=== PATIENT | female | born 1960 | race Caucasian/White ===

== ENCOUNTER → 2016-07-07 | Outpatient (CLI) | payer OTHER ==
--- NOTE | 2016-07-07 10:10 | US ---
Ultrasound of the Abdomen Complete History: Abdominal fullness. R14 Findings: Gallbladder: No shadowing calculi, wall thickening, or pericholecystic fluid. Common bile duct is 5 m m in diameter which is normal. Liver: Homogeneous in echogenicity and measures 14 cm in length. No definite focal lesions. Renal: Right kidney measures 11 x 5 x 5 cm and left kidney 11 x 5 x 5 cm without hydronephrosis in ei ther kidney. Spleen: Homogeneous and 10 cm in length without splenomegaly. Pancreas: Homogeneous without peripancreatic fluid. Aorta: Visualized upper abdominal aorta demonstrates no aneurysm. IVC: Grossly patent. Impression: Normal ultrasound abdomen complete.
== END ==
LOC: BRMIMAGING 09:15
PROVIDERS: ATTEND Physician Assistant
DX: R14.0 Abdominal distension (gaseous) (principal)
CPT/HCPCS: 76700-PO

== ENCOUNTER → 2017-06-01 | Outpatient (CLI) | payer OTHER | LOC: FIMAGING 12:16 | PROVIDERS: ATTEND Physician Assistant | DX: Z12.31 Encounter for screening mammogram for malignant neoplasm of breast (principal) | CPT/HCPCS: G0202 ==

== ENCOUNTER → 2017-12-13 | Outpatient (CLI) | payer OTHER | LOC: CIMAGING 15:23 | PROVIDERS: ATTEND Physician Assistant | DX: Z03.89 Encounter for observation for other suspected diseases and conditions ruled out (principal); R89.9 Unspecified abnormal finding in specimens from other organs, systems and tissues | CPT/HCPCS: 76536-PO ==

== ENCOUNTER → 2018-06-03 | Outpatient (CLI) | payer OTHER | LOC: CIMAGING 15:00 | PROVIDERS: ATTEND Physician Assistant | DX: Z12.31 Encounter for screening mammogram for malignant neoplasm of breast (principal) ==

== ENCOUNTER → 2018-06-12 | Outpatient (CLI) | payer OTHER | LOC: CIMAGING 12:58 | PROVIDERS: ATTEND Physician Assistant | DX: R92.8 Other abnormal and inconclusive findings on diagnostic imaging of breast (principal) | CPT/HCPCS: 76641-PO ==

== ENCOUNTER → 2018-07-22 | Outpatient (CLI) | payer OTHER | LOC: CIMAGING 16:56 | PROVIDERS: ATTEND Physician Assistant | DX: D25.1 Intramural leiomyoma of uterus (principal); N39.9 Disorder of urinary system, unspecified; Z78.0 Asymptomatic menopausal state | CPT/HCPCS: 76856-PO ==

== ENCOUNTER → 2018-08-15 | Outpatient (CLI) | payer OTHER | LOC: CIMAGING 17:01 | PROVIDERS: ATTEND Obstetrics & Gynecology Gynecology | DX: D25.1 Intramural leiomyoma of uterus (principal) | CPT/HCPCS: 76856-PO ==

== ENCOUNTER 2018-10-07 14:20 | Emergency (ER) | payer OTHER ==
[2018-10-07] MEDS ORDERED: NS 1,000 ML IV ONE ×2 (14:34→17:12)
--- NOTE | 2018-10-07 14:45 | EDPHY ---
H & P Stated Complaint: bladder infection siice sunday , body aches, fever Source: Patient Exam Limitations: No limitations - Personal History Current Tetanus Diphtheria and Acellular Pertussis (TDAP): Yes - Medical/Surgical History Hx Asthma: No Hx Chronic Respiratory Disease: No Hx Diabetes: No Hx Cardiac Disease: No Hx Renal Disease: No Hx Cirrhosis: No Hx Alcoholism: No Hx HIV/AIDS: No Hx Splenectomy or Spleen Trauma: No Other PMH: HTN, left knee surgery - Social History Smoking Status: Never smoked <KeonKyliemari - Last Filed: 10/07/18 17:45> <SharronmarioSarai Mari - Last Filed: 10/08/18 17:26> Time Seen by Provider: 10/07/18 14:34 HPI/ROS: HPI: This is a 50-year-old female who presents with Chief Complaint: bladder infection since Sunday , body aches, fever Location: Quality: Burning with urination Duration: Since Sunday Signs and Symptoms: + subjective fever, + chills, + nausea, no vomiting, no hematemesis, no blood in stool, no abdominal bloating, no diarrhea, + lower back pain, no urinary symptoms, no vaginal bleeding/discharge, no indigestion, no chest pain, no shortness of breath Timing: Worsening Severity: Moderate Context: Patient presents with concerns of a bladder infection that was diagnosed on Sunday afternoon. On Sunday she received preoperative lab work and urinalysis for her planned total hysterectomy for fibroid uterus this Sunday. She was called on Sunday and informed that she had a urinary tract infection and was started on Macrobid. Sunday she started to developed subjective fever, chills, nausea and low back pain. She complains of burning with urination. She reports that a urine culture was never sent. She has an allergy to ciprofloxacin and cephalexin. Patient complains of lower abdominal fullness and discomfort. Modifying Factors: Macrobid Comment: ROS: A comprehensive 10 system review of systems is otherwise negative aside from elements mentioned in the history of present illness. MEDICAL/SURGICAL/SOCIAL HISTORY: Medical history: Hypertension Surgical history: Left knee surgery Social history: Never smoked. . 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 Family history noncontributory. CONSTITUTIONAL: Nontoxic-appearing middle-aged white female, friend at bedside , awake and alert, no obvious distress HEENT: Atraumatic and normocephalic, PERRL, EOMI. Nares patent; no rhinorrhea; no nasal mucosal edema. Tympanic membranes clear. Oropharynx clear, no exudate and moist pink mucosa. Airway patent. No lymphadenopathy. No meningismus. Cardiovascular: Normal S1/S2, regular rate, regular rhythm, without murmur rub or gallop. PULMONARY/CHEST: Symmetrical and nontender. Clear to auscultation bilaterally. Good air movement. No accessory muscle usage. ABDOMEN: Soft, nondistended, moderate suprapubic tenderness, no rebound, no guarding, no peritoneal signs, no masses or organomegaly. No CVAT. EXTREMITIES: 2/2 pulses, strength 5/5, no deformities, no clubbing, no cyanosis or edema. NEUROLOGICAL: no focal neuro deficits. GCS 15. SKIN: Warm and dry, no erythema. no rash. Good capillary refill. (Ronda Herbert) Constitutional: Initial Vital Signs Temperature (C) 37.5 C 10/07/18 14:23 Heart Rate 112 H 10/07/18 14:23 Respiratory Rate 16 10/07/18 14:23 Blood Pressure 133/80 H 10/07/18 14:23 O2 Sat (%) 97 10/07/18 14:23 O2 Delivery Mode Room Air Allergies/Adverse Reactions: cephalexin monohydrate [From Keflex] Allergy (Verified 10/08/18 10:16) ciprofloxacin [From Cipro] Allergy (Verified 10/08/18 10:16) ciprofloxacin HCl [From Cipro] Allergy (Verified 10/08/18 10:16) Home Medications: Medication Instructions Recorded Hydrochlorothiazide 12.5 mg PO DAILY 10/15/12 [Hydrochlorothiazide 12.5 MG (RX)] Lisinopril Unk 04/21/13 Ondansetron Odt [Zofran Odt 4 mg 4 mg PO Q4 PRN #20 tab 10/08/18 (RX)] Medical Decision Making <Ronda Herbert - Last Filed: 10/07/18 17:45> - Diagnostics Imaging: Discussed imaging studies w/ scalloper Radiologist <Sarai Malhotra - Last Filed: 10/08/18 17:26> ED Course/Re-evaluation: Vital signs reviewed and show mild tachycardia. IV access, laboratory studies, urinalysis ordered Given 2 L normal saline, IV Toradol 30 mg and IV Zofran 4 mg 1516: Laboratory studies reviewed. WBC 11 K, creatinine 0.8. No signs electrolyte imbalance Urinalysis is completely unremarkable. Decision made to obtain CT abdomen and pelvis scan. 1745: End of shift. Signed over to Dr. Malhotra pending CT abdomen and pelvis scan results and final disposition. This patient was seen under the supervision of my secondary supervising physician. I evaluated care for this patient independently. (Ronda Herbert) I have evaluated and participated in the management of this patient. My co- signature indicates that I have reviewed this chart and that I agree with the findings and the plan of care as documented. My personal history and physical findings include: 58-year-old female scheduled to undergo surgery for uterine fibroid at the end of this week. She is presenting with abdominal pain. I received a report of the CT of her abdomen and pelvis and relayed t the findings to the patient. There was nothing in the CT scan that required immediate attention and no clear explanation for her pain. There is a lesion in the right hepatic lobe that was previously seen--she was aware of this. She continues with a sensation of abdominal fullness. She is aware that her urinalysis is negative for any signs of infection. There is nothing to suggest pyelonephritis. I do not have a clear explanation for her elevated white blood cell count but I have not found anything of concern in her history, physical exam, or laboratory findings and I do not recommend additional emergency department evaluation. Her surgeon will be made aware of today's visit. A urine culture has been sent. (Sarai Malhotra) Differential Diagnosis: Differential diagnosis includes but is not limited to urinary tract infection, pyelonephritis, sepsis, dehydration, acute kidney injury. (Ronda Herbert) - Data Points Laboratory Results: Laboratory Results 10/07/18 14:48 10/07/18 14:48 Medications Given: Discontinued Medications Sodium Chloride (Ns) 1,000 mls @ 0 mls/hr IV ONCE ONE; Wide Open PRN Reason: Protocol Stop: 10/07/18 14:35 Last Admin: 10/07/18 14:52 Dose: 1,000 mls Sodium Chloride (Ns) 1,000 mls @ 0 mls/hr IV EDNOW ONE; Wide Open PRN Reason: Protocol Stop: 10/07/18 17:13 Last Admin: 10/07/18 17:14 Dose: 1,000 mls Ketorolac Tromethamine (Toradol) 30 mg IVP EDNOW ONE Stop: 10/07/18 15:04 Last Admin: 10/07/18 15:09 Dose: 30 mg Ondansetron HCl (Zofran) 4 mg IVP EDNOW ONE Stop: 10/07/18 14:57 Last Admin: 10/07/18 14:58 Dose: 4 mg Departure <Ronda Herbert - Last Filed: 10/07/18 17:45> <Sarai Malhotra - Last Filed: 10/08/18 17:26> - Departure Disposition: Home, Routine, Self-Care Clinical Impression: Fibroid uterus, Abdominal pain Condition: Good Instructions: Abdominal Pain (ED) Additional Instructions: Follow up with Dr. Stinson as planned. Referrals: Rae Hebert PA [Primary Care Provider] - As per Instructions Lorelei Stinson MD [Medical Doctor] - As per Instructions
[2018-10-07] MEDS ORDERED: ONDANSETRON 4 MG/2 ML VIAL IVP ONE (14:56)
[2018-10-07 14:57] LABS: PLATELET COUNT 317 10^3/uL (150-400)
[2018-10-07] MEDS ORDERED: KETOROLAC 30 MG/1 ML SDV IVP ONE (15:03)
[2018-10-07] MEDS ORDERED: IOPAMIDOL (ISOVUE-300) 100 ML BTL ONE (17:44)
[2018-10-07 18:56] VITALS: BP 112/68
== END 2018-10-07 18:56 | disposition home or self-care (01) ==
DX: D25.9 Leiomyoma of uterus, unspecified (principal); R30.0 Dysuria; R10.9 Unspecified abdominal pain; R50.9 Fever, unspecified; M79.10 Myalgia, unspecified site; E86.9 Volume depletion, unspecified
CPT/HCPCS: 96374; J1885; J2405; Q9967

== ENCOUNTER 2018-10-08 09:53 | Emergency (ER) | payer OTHER ==
[2018-10-08] MEDS ORDERED: ACETAMINOPHEN 500 MG TAB PO ONE (10:24)
--- NOTE | 2018-10-08 10:28 | EDPHY ---
H & P Time Seen by Provider: 10/08/18 10:15 HPI/ROS: CHIEF COMPLAINT: Body aches, fevers, sore throat HISTORY OF PRESENT ILLNESS: Patient is a 58-year-old female who is scheduled to have a hysterectomy on . On Sunday of last week they were doing preoperative lab work and discovered that she had white cells in her urine. They called her on Sunday and started on Macrobid. She denies having any urinary symptoms however. She states that she does get frequent urine infections but has not had the dysuria or frequency that she usually does. No hematuria either. Urine cultures were not sent. On Sunday she presented to the ER complaining of body aches and chills. She had lab work done which is unremarkable other than slightly elevated white count. She had a CT scan done of her abdomen which was unremarkable other than the previously known fibroid. Her urinalysis at that time was completely negative. Cultures were sent. Today she returns to the ER stating that she is having body aches and now having a sore throat and headache and nausea. She continues to deny any dysuria frequency or hematuria. No rashes. She feels better after taking Tylenol yesterday but has not taken any today. She did take Zofran with significant improvement. She did get a flu vaccine this year. No runny nose. No diarrhea. No vaginal bleeding or discharge. Severity: Moderate Modifying factors: Improves with medications REVIEW OF SYSTEMS: Constitutional: denies: chills, fever, recent illness, recent injury EENTM see HPI: denies: blurred vision, double vision, nose congestion Respiratory: denies: cough, shortness of breath Cardiac: denies: chest pain, irregular heart rate, lightheadedness, palpitations Gastrointestinal/Abdominal: denies: abdominal pain, diarrhea, nausea, vomiting, blood streaked stools Genitourinary: denies: dysuria, frequency, hematuria, pain Musculoskeletal: denies: joint pain, muscle pain Skin: denies: lesions, rash, jaundice, bruising Neurological: denies: headache, numbness, paresthesia, tingling, dizziness, weakness Hematologic/Lymphatic: denies: blood clots, easy bleeding, easy bruising Immunologic/allergic: denies: HIV/AIDS, transplant 10 systems reviewed and negative except as noted EXAM: GENERAL: Well-appearing, well-nourished and in no acute distress. HEAD: Atraumatic, normocephalic. EYES: Pupils equal round and reactive to light, extraocular movements intact, sclera anicteric, conjunctiva are normal. ENT: TMs normal, nares patent, oropharynx clear without exudates. Moist mucous membranes. NECK: Normal range of motion, supple without lymphadenopathy or JVD. LUNGS: Breath sounds clear to auscultation bilaterally and equal. No wheezes rales or rhonchi. HEART: Regular rate and rhythm without murmurs, rubs or gallops. ABDOMEN: Soft, nontender, normoactive bowel sounds. No guarding, no rebound. No masses appreciated. BACK: No CVA tenderness, no spinal tenderness, step-offs or deformities EXTREMITIES: Normal range of motion, no pitting or edema. No clubbing or cyanosis. NEUROLOGICAL: Cranial nerves II through XII grossly intact. Normal speech, normal gait. 5/5 strength, normal movement in all extremities, normal sensation , normal reflexes PSYCH: Normal mood, normal affect. SKIN: Warm, dry, normal turgor, no visible rashes or lesions. Source: Patient Exam Limitations: No limitations - Medical/Surgical History Hx Asthma: No Hx Chronic Respiratory Disease: No Hx Diabetes: No Hx Cardiac Disease: No Hx Renal Disease: No Hx Cirrhosis: No Hx Alcoholism: No Hx HIV/AIDS: No Hx Splenectomy or Spleen Trauma: No Other PMH: HTN, left knee surgery - Family History Significant Family History: No pertinent family hx - Social History Smoking Status: Never smoked Alcohol Use: None Constitutional: Initial Vital Signs Temperature (C) 38.2 C 10/08/18 10:17 Heart Rate 112 H 10/08/18 10:17 Respiratory Rate 14 10/08/18 10:17 Blood Pressure 113/73 10/08/18 10:17 O2 Sat (%) 94 10/08/18 10:17 O2 Delivery Mode Room Air Allergies/Adverse Reactions: cephalexin monohydrate [From Keflex] Allergy (Verified 10/08/18 10:16) ciprofloxacin [From Cipro] Allergy (Verified 10/08/18 10:16) ciprofloxacin HCl [From Cipro] Allergy (Verified 10/08/18 10:16) Home Medications: Medication Instructions Recorded Hydrochlorothiazide 12.5 mg PO DAILY 10/15/12 [Hydrochlorothiazide 12.5 MG (RX)] Lisinopril Unk 04/21/13 Ondansetron Odt [Zofran Odt 4 mg 4 mg PO Q4 PRN #20 tab 10/08/18 (RX)] Medical Decision Making ED Course/Re-evaluation: The patient has been taking antibiotics for white cells in her urine but she has not had any urinary symptoms which she is typically used to with her frequent infections. She has no developing other symptoms of a generalized viral type illness such as a sore throat, headache, body aches and fevers. She is not toxic-appearing. Will treat her with antipyretics and hydration. She declines IV and is able to take oral fluids. She did take a Zofran at home today and declines further nausea medication. Her abdominal exam is benign. She had a CT done yesterday which was reassuring. Will check for flu and strep and send off a respiratory PCR. Most likely this is a flu-like viral illness that will resolve with conservative treatment. 11:00 a.m. the patient has developed a mild diffuse lacy rash considered with a viral exanthem. She continues to do well and is waiting for her lab results. 12:00 p.m. we discussed the test results. The patient is reassured. Her fever has resolved. Heart rate is normalized. She is eager to go home. I encouraged her to continue taking antipyretics. Respiratory PCR is pending. Her surgery for has been canceled. I suggested that she is at the beginning of a viral type infection and will likely worsen over the next couple of days. We discussed indications for returning the emergency department such as shortness of breath, chest pain, uncontrolled vomiting fevers etc. She feels comfortable with this plan and declines further workup or testing at this time. We did discussed the case with Dr. Stinson's office. She will continue taking the Macrobid. Differential Diagnosis: Partial list of the Differential diagnosis considered include but were not limited to; viral syndrome, strep throat, influenza, urinary tract infection and although unlikely based on the history and physical exam, I also considered pyelonephritis, appendicitis, ischemia, obstruction, volvulus, meningitis, sepsis. I discussed these differential diagnoses and the plan with the patient as well as the usual and expected course. The patient understands that the diagnosis is provisional and that in medicine we are not always correct and that further workup is often warranted. Usual and customary warnings were given. All of the patient's questions were answered. The patient was instructed to return to the emergency department should the symptoms at all worsen or return, otherwise to followup with the physician as we discussed. - Data Points Medications Given: Discontinued Medications Acetaminophen (Tylenol) 1,000 mg PO EDNOW ONE Stop: 10/08/18 10:25 Last Admin: 10/08/18 10:49 Dose: 1,000 mg Point of Care Test Results: Influenza PCR Flu Nasal Swab Collection Date 10/08/18 Flu Nasal Swab Collection Time 10:40 Influenza A Result Not Detected Influenza B Result Not Detected Strep Strep Throat Swab Collection 10/08/18 Date Strep Throat Swab Swab 10:40 Collection Time Strep Result Not Detected Departure - Departure Disposition: Home, Routine, Self-Care Clinical Impression: Viral syndrome Condition: Fair Instructions: Viral Syndrome (ED) Referrals: Lorelei Stinson MD [Medical Doctor] - As per Instructions Rae Hebert PA [Primary Care Provider] - 2-3 days, call for appt. Prescriptions: Ondansetron Odt [Zofran Odt 4 mg (RX)] 4 mg PO Q4 PRN #20 tab PRN Reason: Nausea & Vomiting
[2018-10-08 12:12] VITALS: BP 112/74
== END 2018-10-08 12:11 | disposition home or self-care (01) ==
LOC: CED 09:53
DX: B34.8 Other viral infections of unspecified site (principal); I10 Essential (primary) hypertension; D25.9 Leiomyoma of uterus, unspecified
CPT/HCPCS: 670937QWER; 87400-QW-ER; 99283-ER

== ENCOUNTER 2018-10-10 10:06 | Observation (INO) | payer OTHER ==
[2018-10-10] MEDS ORDERED: NS 1,000 ML IV ONE (10:28)
[2018-10-10 10:37] LABS: PLATELET COUNT 262 10^3/uL (150-400)
--- NOTE | 2018-10-10 10:43 | EDPHY ---
HPI/HX/ROS/PE/MDM Narrative: CHIEF COMPLAINT: Rash, abdominal pain, body aches HPI: The patient is a 58-year-old female with known uterine fibroids. She has been seen in the emergency department several times over the last week for a variety of complaints including body aches, sore throat and abdominal pain. Workup has so far included a CT scan of the abdomen pelvis which is negative and a respiratory PCR which recently came back as positive for human enterovirus. The patient returns to the emergency department by ambulance today saying that she hurts all over and feels like she just can't take it anymore. The patient is quite tearful during exam and has to stop speaking several times secondary to crying. REVIEW OF SYSTEMS: Aside from elements discussed in the HPI, a comprehensive 10-point review of systems was reviewed and is negative. PMH: Includes uterine fibroids. 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 Denies drug abuse. PHYSICAL EXAM: General:Patient is alert, in no acute distress. She is well appearing but quite tearful. ENT:Eyes are normal to inspection. ENT inspection normal. Neck: Normal inspection. Full range of motion. Respiratory:No respiratory distress. Breath sounds normal bilaterally. Cardiovascular: Regular rate and rhythm. Strong peripheral pulses. Normal cap refill. Abdomen:The abdomen is nontender to palpation. There are no peritoneal signs. There are normal bowel sounds. Back: Normal to inspection. No tenderness to palpation. Skin: Erythematous macular papular rash is present on essentially entire body except for face and toes. On the legs, this is a red macular papular rash that is confluent. On the chest and torso, this is almost entirely confluent erythematous. There are no vesicles. Extremities: Normal appearance. Full range of motion. Neuro: Oriented x3. Normal motor function. Normal sensory function. ED Course: On re-evaluation at 11:30 a.m., patient continues to complain of overall malaise. Her rash is unchanged. Her laboratory results are unchanged from the past several days and her chest x-ray is negative. The patient recently underwent a CTAP that was negative for acute process, and her abdominal pain has been present for two months - I see no sign of abdominal emergency at this time. The patient states that she still feels too weak to go home and requests admission to the hospital. I paged the hospitalist service and patient will be admitted for observation. I think the patient's rash is likely a drug rash. Anaphylaxis much less likely given no discrete urticaria or airway issues. I will defer possible steroid therapy to admitting physician. - Data Points Imaging Results: Imaging Impressions Chest X-Ray 10/10/18 10:29 Impression: No acute findings in the chest. Laboratory Results: Laboratory Results 10/10/18 10:45 10/10/18 10:45 10/10/18 10/10/18 10/10/18 10:45 10:45 09:30 WBC 7.88 10^3/uL 10^3/uL (3.80-9.50) RBC 4.63 10^6/uL 10^6/uL (4.18-5.33) Hgb 12.9 g/dL g/dL (12.6-16.3) Hct 39.3 % % (38.0-47.0) MCV 84.9 fL fL (81.5-99.8) MCH 27.9 pg pg (27.9-34.1) MCHC 32.8 g/dL g/dL (32.4-36.7) RDW 14.1 % % (11.5-15.2) Plt Count 227 10^3/uL 10^3/uL (150-400) MPV 10.8 fL fL (8.7-11.7) Neut % (Auto) Pending Lymph % (Auto) Pending [place] % (Auto) Pending Eos % (Auto) Pending Baso % (Auto) Pending Nucleat RBC Rel Count Pending Absolute Neuts (auto) Pending Absolute Lymphs (auto) Pending Absolute Monos (auto) Pending Absolute Eos (auto) Pending Absolute Basos (auto) Pending Absolute Nucleated RBC Pending Immature Gran % Pending Seg Neutrophils % Band Neutrophils % Lymphocytes % Monocytes % Eosinophils % Basophils % Metamyelocytes % Myelocytes % Promyelocytes % Blast Cells % Immature Gran # Pending Absolute Seg Neuts Absolute Band Neuts Absolute Lymphocytes Absolute Monocytes Absolute Eosinophils Absolute Basophils Absolute Metamyelocyte Absolute Myelocytes Absolute Promyelocytes Absolute Plasma Cells Nucleated RBCs RBC/WBC/PLT Morphology Absolute Blast Cells Plasma Cells % Platelet Estimate Pending Sodium 136 mEq/L mEq/L 136 mEq/L mEq/L (135-145) (135-145) Potassium 3.5 mEq/L mEq/L 4.1 mEq/L mEq/L (3.5-5.2) (3.5-5.2) Chloride 105 mEq/L mEq/L 104 mEq/L mEq/L (97-110) (97-110) Carbon Dioxide 22 mEq/l mEq/l 23 mEq/l mEq/l (22-31) (22-31) Anion Gap 9 mEq/L mEq/L 9 mEq/L mEq/L (6-14) (6-14) BUN 12 mg/dL mg/dL 13 mg/dL mg/dL (7-23) (7-23) Creatinine 0.7 mg/dL mg/dL 0.8 mg/dL mg/dL (0.6-1.0) (0.6-1.0) Estimated GFR > 60 > 60 Glucose 116 mg/dL H mg/dL 105 mg/dL H mg/dL (70-100) (70-100) Calcium 8.5 mg/dL mg/dL 8.8 mg/dL mg/dL (8.5-10.4) (8.5-10.4) Specimen Hemolysis 136 10/10/18 09:30 WBC 6.89 10^3/uL 10^3/uL (3.80-9.50) RBC 4.90 10^6/uL 10^6/uL (4.18-5.33) Hgb 13.8 g/dL g/dL (12.6-16.3) Hct 42.4 % % (38.0-47.0) MCV 86.5 fL fL (81.5-99.8) MCH 28.2 pg pg (27.9-34.1) MCHC 32.5 g/dL g/dL (32.4-36.7) RDW 14.3 % % (11.5-15.2) Plt Count 262 10^3/uL 10^3/uL (150-400) MPV 11.1 fL fL (8.7-11.7) Neut % (Auto) Not Reported Lymph % (Auto) Not Reported [place] % (Auto) Not Reported Eos % (Auto) Not Reported Baso % (Auto) Not Reported Nucleat RBC Rel Count Not Reported Absolute Neuts (auto) Not Reported Absolute Lymphs (auto) Not Reported Absolute Monos (auto) Not Reported Absolute Eos (auto) Not Reported Absolute Basos (auto) Not Reported Absolute Nucleated RBC Not Reported Immature Gran % Not Reported Seg Neutrophils % 74.2 % % Band Neutrophils % 20.4 % % Lymphocytes % 2.2 % % Monocytes % 0.0 % % Eosinophils % 3.2 % % Basophils % 0.0 % % Metamyelocytes % 0.0 % % Myelocytes % 0.0 % % Promyelocytes % 0.0 % % Blast Cells % 0.0 % % Immature Gran # Not Reported Absolute Seg Neuts 5.11 10^3/uL 10^3/uL (1.70-6.50) Absolute Band Neuts 1.41 10^3/uL H 10^3/uL (0.00-0.70) Absolute Lymphocytes 0.15 10^3/uL L 10^3/uL (1.00-3.00) Absolute Monocytes 0.00 10^3/uL L 10^3/uL (0.30-0.80) Absolute Eosinophils 0.22 10^3/uL 10^3/uL (0.03-0.40) Absolute Basophils 0.00 10^3/uL L 10^3/uL (0.02-0.10) Absolute Metamyelocyte 0.00 10^3/mL 10^3/mL (0.00-0.00) Absolute Myelocytes 0.00 10^3/mL 10^3/mL (0.00-0.00) Absolute Promyelocytes 0.00 10^3/uL 10^3/uL (0.00-0.00) Absolute Plasma Cells 0.00 10^3/uL 10^3/uL (0.00-0.00) Nucleated RBCs 0 /100 WBC /100 WBC (0-0) RBC/WBC/PLT Morphology NORMAL (NORMAL) Absolute Blast Cells 0.00 10^3/uL 10^3/uL (0.00-0.00) Plasma Cells % 0.0 % % Platelet Estimate ADEQUATE (ADEQ) Sodium Potassium Chloride Carbon Dioxide Anion Gap BUN Creatinine Estimated GFR Glucose Calcium Specimen Hemolysis Medications Given: Discontinued Medications Sodium Chloride (Ns) 1,000 mls @ 0 mls/hr IV EDNOW ONE; Wide Open PRN Reason: Protocol Stop: 10/10/18 10:29 Last Admin: 10/10/18 10:36 Dose: 1,000 mls General Time Seen by Provider: 10/10/18 10:07 Initial Vital Signs: Initial Vital Signs Temperature (C) 37.4 C 10/10/18 10:09 Heart Rate 108 H 10/10/18 10:09 Respiratory Rate 16 10/10/18 10:09 Blood Pressure 136/72 H 10/10/18 10:09 O2 Sat (%) 97 10/10/18 10:09 O2 Delivery Mode Room Air Allergies/Adverse Reactions: cephalexin monohydrate [From Keflex] Allergy (Verified 10/10/18 12:02) Rash ciprofloxacin HCl [From Cipro] Allergy (Verified 10/10/18 12:02) Muscle Pain codeine Allergy (Verified 10/10/18 12:02) Vomiting Home Medications: Medication Instructions Recorded Lisinopril/Hctz 10/12.5 mg 1 ea PO DAILY 04/21/13 [Zestoretic/Prinzide 10/12.5MG (*)] Ondansetron Odt [Zofran Odt 4 mg 4 mg PO Q4 PRN #20 tab 10/08/18 (RX)] Cholecalciferol Vit D3 [Vitamin D3 1,000 units PO DAILY 10/10/18 (*)] Herbals/Supplements -Info Only 1 ea PO DAILY 10/10/18 Nitrofurantoin Monohyd/M-Cryst 100 mg PO BID 10/10/18 [Macrobid 100 mg Capsule] Departure - Departure Disposition: [facility] Clinical Impression: Rash, Enterovirus infection, Abdominal pain Condition: Fair
[2018-10-10 11:16] LABS: PLATELET COUNT 227 10^3/uL (150-400)
[2018-10-10] MEDS ORDERED: ONDANSETRON DISINTEGRATING 4 MG TAB PO PRN (13:07)
[2018-10-10] MEDS ORDERED: ONDANSETRON 4 MG/2 ML VIAL IVP PRN (13:07)
--- NOTE | 2018-10-10 13:27 | PDGENHP ---
History and Physical - Chief Complaint Abdominal pain, nausea, fevers - History of Present Illness This is a 58 y/o female w/hx of uterine fibroids who was scheduled for a total hysterectomy today but has been cancelled d/t last Sunday during her pre- operative testing she tested positive for a urinary tract infection even though she did not have any urinary symptoms at the time indicating an infection, including no fever. The UA was only positive for WBC which was 10-15 count, no leukocyte esterase or nitrate. On Sunday, she reports feeling dysuria, abdominal pain, body aches, and subjective fevers. She was started on Macrobid on Sunday. She came through the ED on Sunday and Sunday w/ c/o general malaise , fevers, body aches and also reporting a urine culture was never sent. Urine culture came back negative, abdominal/pelvis CT unremarkable w/noted chronic hepatic lobe lesion that the pt was aware of but "have not received a good reason why I have that," and a resp panel positive for human rhinovirus/ enterovirus. Today she presented via ambulance because she just couldn't take it anymore she felt so poorly w/above symptoms including a new present erythematous macular papular rash noted over entire body, except for neck, face and toes. She reports she has taken Macrobid a year prior w/o issues. She continues to c/o diffuse abdominal pain that started 2 months ago after she ate salad and salmon that she purchased at her gym. Also, she c/o general malaise, body aches, nausea, and dry cough. Endorses constipation, last BM was Sunday. Reports while in ambulance, her temperature was 102.9 but no tylenol was given. Denies SOB, CP , vomiting, chills. She is being admitted for further work-up, treatment and monitoring. History Information - Allergies/Home Medication List Allergies/Adverse Reactions: cephalexin monohydrate [From Keflex] Allergy (Verified 10/10/18 12:02) Rash ciprofloxacin HCl [From Cipro] Allergy (Verified 10/10/18 12:02) Muscle Pain codeine Allergy (Verified 10/10/18 12:02) Vomiting Home Medications: Lisinopril/Hctz 10/12.5 mg [Zestoretic/Prinzide 10/12.5MG (*)] 1 ea PO DAILY [Last Taken 10/09/18] Cholecalciferol Vit D3 [Vitamin D3 (*)] 1,000 units PO DAILY 10/10/18 [Last Taken 10/09/18] Herbals/Supplements -Info Only 1 ea PO DAILY 10/10/18 [Last Taken Unknown] Nitrofurantoin Monohyd/M-Cryst [Macrobid 100 mg Capsule] 100 mg PO BID 10/10/18 [Last Taken 10/09/18 21:00] I have personally reviewed and updated: family history, medical history, social history, surgical history Past Medical History: Uterine fibroids. HPV. Herpes labialis - Past Medical History hypertension - Surgical History Additional surgical history: Left knee surgery (2013). 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 Review of Systems Review of Systems: ROS: 10pt was reviewed & negative except for what was stated in HPI & below Physical Exam Physical Exam: Lab data and imaging were viewed. Abdominal/pelvis CT w/contrast: There is a 12 x 13 mm indeterminate lesion in the medial right hepatic lobe, which appears to "fill in"on delayed sequences, and could represent a hemangioma, although does not have the classic peripheral nodular centripetal enhancement. There is a stable dominant complex subserosal right uterine fundal leiomyoma. Small benign renal parapelvic cysts and a tiny posterior lower pole left renal cortical cyst. CXR: No acute findings Temp Pulse Resp BP Pulse Ox 37.8 C 103 H 16 118/61 96 10/10/18 12:29 10/10/18 12:29 10/10/18 12:29 10/10/18 12:29 10/10/18 12:29 Constitutional: appears nourished, uncomfortable, other (Overweight, mildly distressed (anxious) pt, cooperative) Eyes: PERRL, anicteric sclera, EOMI Ears, Nose, Mouth, Throat: hearing normal, ears appear normal, no oral mucosal ulcers, dry mucous membranes Cardiovascular: regular rate and rhythym, no murmur, rub, or gallop, tachycardia Peripheral Pulses: 2+: dorsalis-pedis (R), dorsalis-pedis (L) Respiratory: no respiratory distress, no rales or rhonchi, clear to auscultation Gastrointestinal: tenderness (Diffuse; noted more discomfort to RUQ) Genitourinary: no bladder fullness, no bladder tenderness Skin: erythema, rash (Noted in HPI - appears to be a drug reaction rash) Musculoskeletal: full muscle strength, no muscle tenderness, normal joint ROM, no joint effusions Neurologic: AAOx3, sensation intact bilaterally, CN II-XII Intact Psychiatric: not encephalopathic, thought process linear, anxious Lymph, Heme, Immunologic: no cervical LAD, no supraclavicular LAD Lab Data & Imaging Review 10/10/18 13:21 10/10/18 10:45 WBC 7.88 10^3/uL (3.80-9.50) 10/10/18 10:45 RBC 4.63 10^6/uL (4.18-5.33) 10/10/18 10:45 Hgb 12.9 g/dL (12.6-16.3) 10/10/18 10:45 Hct 39.3 % (38.0-47.0) 10/10/18 10:45 MCV 84.9 fL (81.5-99.8) 10/10/18 10:45 MCH 27.9 pg (27.9-34.1) 10/10/18 10:45 MCHC 32.8 g/dL (32.4-36.7) 10/10/18 10:45 RDW 14.1 % (11.5-15.2) 10/10/18 10:45 Plt Count 227 10^3/uL (150-400) 10/10/18 10:45 MPV 10.8 fL (8.7-11.7) 10/10/18 10:45 Neut % (Auto) 93.1 % (39.3-74.2) H 10/10/18 10:45 Lymph % (Auto) 0.9 % (15.0-45.0) L 10/10/18 10:45 [place] % (Auto) 2.0 % (4.5-13.0) L 10/10/18 10:45 Eos % (Auto) 3.6 % (0.6-7.6) 10/10/18 10:45 Baso % (Auto) 0.0 % (0.3-1.7) L 10/10/18 10:45 Nucleat RBC Rel Count 0.0 % (0.0-0.2) 10/10/18 10:45 Absolute Neuts (auto) 7.34 10^3/uL (1.70-6.50) H 10/10/18 10:45 Absolute Lymphs (auto) 0.07 10^3/uL (1.00-3.00) L 10/10/18 10:45 Absolute Monos (auto) 0.16 10^3/uL (0.30-0.80) L 10/10/18 10:45 Absolute Eos (auto) 0.28 10^3/uL (0.03-0.40) 10/10/18 10:45 Absolute Basos (auto) 0.00 10^3/uL (0.02-0.10) L 10/10/18 10:45 Absolute Nucleated RBC 0.00 10^3/uL (0-0.01) 10/10/18 10:45 Immature Gran % 0.4 % (0.0-1.1) 10/10/18 10:45 Seg Neutrophils % 74.2 % 10/10/18 09:30 Band Neutrophils % 20.4 % 10/10/18 09:30 Lymphocytes % 2.2 % 10/10/18 09:30 Monocytes % 0.0 % 10/10/18 09:30 Eosinophils % 3.2 % 10/10/18 09:30 Basophils % 0.0 % 10/10/18 09:30 Metamyelocytes % 0.0 % 10/10/18 09:30 Myelocytes % 0.0 % 10/10/18 09:30 Promyelocytes % 0.0 % 10/10/18 09:30 Blast Cells % 0.0 % 10/10/18 09:30 Immature Gran # 0.03 10^3/uL (0.00-0.10) 10/10/18 10:45 Absolute Seg Neuts 5.11 10^3/uL (1.70-6.50) 10/10/18 09:30 Absolute Band Neuts 1.41 10^3/uL (0.00-0.70) H 10/10/18 09:30 Absolute Lymphocytes 0.15 10^3/uL (1.00-3.00) L 10/10/18 09:30 Absolute Monocytes 0.00 10^3/uL (0.30-0.80) L 10/10/18 09:30 Absolute Eosinophils 0.22 10^3/uL (0.03-0.40) 10/10/18 09:30 Absolute Basophils 0.00 10^3/uL (0.02-0.10) L 10/10/18 09:30 Absolute Metamyelocyte 0.00 10^3/mL (0.00-0.00) 10/10/18 09:30 Absolute Myelocytes 0.00 10^3/mL (0.00-0.00) 10/10/18 09:30 Absolute Promyelocytes 0.00 10^3/uL (0.00-0.00) 10/10/18 09:30 Absolute Plasma Cells 0.00 10^3/uL (0.00-0.00) 10/10/18 09:30 Nucleated RBCs 0 /100 WBC (0-0) 10/10/18 09:30 RBC/WBC/PLT Morphology TNP 10/10/18 10:45 Absolute Blast Cells 0.00 10^3/uL (0.00-0.00) 10/10/18 09:30 Plasma Cells % 0.0 % 10/10/18 09:30 Platelet Estimate TNP 10/10/18 10:45 Sodium 136 mEq/L (135-145) 10/10/18 10:45 Potassium 3.5 mEq/L (3.5-5.2) 10/10/18 10:45 Chloride 105 mEq/L (97-110) 10/10/18 10:45 Carbon Dioxide 22 mEq/l (22-31) 10/10/18 10:45 Anion Gap 9 mEq/L (6-14) 10/10/18 10:45 BUN 12 mg/dL (7-23) 10/10/18 10:45 Creatinine 0.7 mg/dL (0.6-1.0) 10/10/18 10:45 Estimated GFR > 60 10/10/18 10:45 Glucose 116 mg/dL (70-100) H 10/10/18 10:45 Calcium 8.5 mg/dL (8.5-10.4) 10/10/18 10:45 Specimen Hemolysis 136 10/10/18 09:30 Assessment & Plan Plan: 58 y/o female who was scheduled for a total hysterectomy today but was cancelled d/t the events of pre-operative testing indicating she had a urinary tract infection however her UA was not impressive for a UTI and she was asymptomatic. Shortly thereafter, she began to experience symptoms w/dysuria, subjective fevers, abdominal pain, and nausea and was placed on Macrobid. Her symptoms did not resolve and she presented to the emergency room numerous times this week w/ c/o general malaise, body aches, nausea, subjective fevers and new onset of almost a full body erythematous rash, no vesicles noted or pruritic w/ mild c/o burning however she is more concerned w/the general way she is feeling and less concerned about her new rash. Her vital signs are the following: BP 118 /61, HR 103, Resp 16, 96% RA, 37.8c. No urinary symptoms. No elevated white count. #General malaise #Hepatic lesion #Erythematous rash #HTN -TSH/ESR/CRP/Liver function panel/Hepatitis panel/UA/Drug tox screen pending -Benadryl for rash as I suspect this is most likely a reaction to her Macrobid since it occurred after she began taking it; stopping macrobid for now; will evaluate UA to see if it requires abx -Incentive spirometry -She received 1L NS in ED; will receive IVF x 2 bags -Anti-emetics PRN -Bowel regimen -Possible abdominal and pelvis MRI w/contrast either today or tomorrow. Will discuss further w/Dr. Mina and place order accordingly Diet: Regular Code: Full VTE ppx: Low risk, OOB ad janet Dispo: Admit to obs
[2018-10-10] MEDS ORDERED: BISACODYL 10 MG SUPP PR PRN (13:49)
[2018-10-10] MEDS ORDERED: POLYETHYLENE GLYCOL 3350 17 GM PKT PO PRN (13:49)
[2018-10-10] MEDS ORDERED: MAGNESIUM HYDROXIDE 30 ML UDCUP PO PRN (13:49)
[2018-10-10] MEDS ORDERED: LACTULOSE 20 GM/30 ML UDCUP PO PRN (13:49)
[2018-10-10] MEDS: NS 1,000 ML IV SCH (14:03)
[2018-10-10] MEDS: ACETAMINOPHEN 325 MG TAB PO PRN (14:04)
[2018-10-10] MEDS: diphenhydrAMINE 25 MG CAP PO PRN ×2 (14:04→22:04)
[2018-10-10 15:03] LABS: HEPATITIS A ANTIBODY IGM (BCH) NEGATIVE (NEGATIVE); HEPATITIS B CORE AB IGM NEGATIVE (NEGATIVE); HEPATITIS B SURFACE ANTIGEN NEGATIVE (NEGATIVE); HEPATITIS C ANTIBODY TOTAL NEGATIVE (NEGATIVE)
--- NOTE | 2018-10-10 15:41 | HOSPPROG ---
Hospitalist Progress Note Assessment/Plan: 58 yo female with hx of uterine fibroids who was supposed to get a total hysterectomy on 10/10 but was cancelled for concern that that the pt was ill. She presented via the ER with abd pain and erythematous macular rash involving her neck down. She has had significant w/u recently including CT scans and ultrasounds. She has been treated recently with Macrobid for a UTI. She denies any urinary sx's She denies hx of acid reflux or symptoms. She has requested a GI consult #Abdominal Pain #Uterine Fibroids #Likely Macrobid induced rash #CT imaging c/w right sided hepatic mass measuring 12-13 mm possibly hemangioma -pt requesting further evaluation for this #Recent Human Enterovirus per Resp PCR -unclear if this could be contributing to her malaise and abd pain #Mild transaminitis -Negative Hep panel #malaise Plan: The pt was seen in conjunction with our SECRETARY RECEPTIONIST Oly Phelps. I agree with her A/P per her HPI -IVF -Antiemetics -GI consult per her request. Will leave NPO at midnight in case procedure is warranted -Benadryl for rash. Stop Macrobid -She refused MRI for further evaluation of her liver mass Diet: Regular Code: Full VTE ppx: SCD Dispo: Admit to obs Objective: Vital Signs Temp Pulse Resp BP Pulse Ox 37.8 C 103 H 16 118/61 96 10/10/18 12:29 10/10/18 12:29 10/10/18 12:29 10/10/18 12:29 10/10/18 12:29 Laboratory Results 10/10/18 13:21 - Physical Exam Constitutional: no apparent distress Eyes: PERRL Ears, Nose, Mouth, Throat: moist mucous membranes, hearing normal Cardiovascular: regular rate and rhythym Respiratory: no respiratory distress Gastrointestinal: normoactive bowel sounds Skin: warm Neurologic: AAOx3 Psychiatric: interacting appropriately, not anxious ICD10 Worksheet Patient Problems: Problems Problem Status Onset Abdominal pain Acute Enterovirus infection Acute Rash Acute
[2018-10-10] MEDS: KETOROLAC 30 MG/1 ML SDV IVP PRN (22:03)
[2018-10-10] MEDS: SENNOSIDES/DOCUSATE SODIUM TAB PO SCH (22:04)
[2018-10-11] MEDS: NS 1,000 ML IV SCH (01:42)
[2018-10-11] MEDS: KETOROLAC 30 MG/1 ML SDV IVP PRN (05:09)
[2018-10-11] MEDS: diphenhydrAMINE 25 MG CAP PO PRN (05:10)
[2018-10-11 05:26] LABS: PLATELET COUNT 252 10^3/uL (150-400)
--- NOTE | 2018-10-11 10:28 | ASMTCMCOM ---
CM Note CM Note Notes: Reviwed chart, pt admitted for rash and abdominal pain. She was scheduled for a hysterectomy but it was cancelled when pt's urine had increased wbc. 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 Anticipate she will dc home when medically stable. CM available for any changes. DC Plan: Independent Date Signed: 10/11/2018 10:27 AM Electronically Signed By:Kayla Dwyer RN
[2018-10-11] MEDS: LISINOPRIL/HCTZ 10/12.5 MG 1 EA TAB PO SCH ×2 (10:58→13:48)
[2018-10-11] MEDS: SENNOSIDES/DOCUSATE SODIUM TAB PO SCH ×2 (10:58→22:06)
[2018-10-11] MEDS: CHOLECALCIFEROL VIT D3 1,000 UNITS TAB PO SCH (10:58)
[2018-10-11] MEDS: LORazepam 0.5 MG TAB PO PRN (13:48)
--- NOTE | 2018-10-11 14:31 | GCON ---
[f rep st] CONSULTATION DATE OF CONSULTATION: 10/11/2018 REFERRING PHYSICIAN: Alex Mina MD Consultation is for abdominal pain. Dear Dr. Mina: Thank you very kindly for asking me to evaluate Ms. Blanton in consultation for a chief complain t of abdominal pain. 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 She had been recently placed on Macrobid for a urinary tract infection, but has taken Macrobid in the past without development of side effects, although does have other antibiotic allerg ies. She says her abdominal pain began in early August after eating salmon salad at her exercise g ym. She did not really feel the food tasted bad and did not develop any problems with diarrhea, but just developed lower abdominal bloating, fullness, and pressure. She does have known uterine fibroid s and was having a planned outpatient hysterectomy which was rescheduled after development of the UTI . She typically does not have any pain or discomfort in her abdomen from the fibroids. She also den ies any urinary symptoms related to the fibroids or any dysfunctional uterine bleeding. Her main pro blems are with abdominal bloating and pressure chronic constipation which she takes MiraLAX for, whic h really has not been any worse of late, and the rash. She was noted to have elevated liver tests on admission and, on CT imaging, a 1 cm unspecified lesion in the liver that radiographically is possib ly consistent with hemangioma. There are no notable pancreatic, biliary, or other gallbladder proble ms. She has never had previous liver disease, and there has been no liver disease in her family. Sh e denies alcohol use. I am asked to assist with further evaluation and management of her abdominal p ain and elevated liver tests. PAST MEDICAL HISTORY: Significant for uterine fibroids. She has had known oral herpes simplex, HPV, hypertension, recent diagnosis of enterovirus reportedly by nasal swab and performed for what sounds like sore throat and fever. SURGICAL HISTORY: Left knee surgery, tonsillectomy. FAMILY HISTORY: Significant for rheumatoid arthritis and hypertension. SOCIAL HISTORY: No tobacco. Occasional alcohol. 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 REVIEW OF SYSTEMS: CONSTITUTIONAL: General malaise, fever, poor appetite. HEENT: Denies headache or visual disturbances. She has had a sore throat. No real rhinorrhea or ear pain. PULMONARY: No cough or shortness of breath. CARDIOVASCULAR: No chest pain or palpitations. RHEUMATOLOGIC: She d oes report diffuse joint tenderness. DERMATOLOGIC: Erythematous rash that she thinks is worsening o lanie today, becoming more reddened and purple in color and spreading across her lower extremities and abdomen. Denies pruritus. GI: She has chronic constipation. There has been no diarrhea, hematoche jeff, or melena. No heartburn. No dysphagia. No upper abdominal pain. She describes bloating and d iscomfort that seems to be better with defecation. GENITOURINARY: She says she has been unable to p ee as of today, but prior to this was having no urinary frequency, hematuria, dysuria or flank pain. GYNECOLOGIC: She has uterine fibroids. No dysfunctional uterine bleeding. NEUROLOGIC: No paresth esias or weakness. No falls. No seizure activity. HEMATOLOGIC: No bruising or epistaxis. LYMPH: Denies any glandular swelling. ALLERGIES: Cephalexin, ciprofloxacin, codeine. MEDICATIONS ON ADMISSION: Include lisinopril, hydrochlorothiazide, vitamin D3, multivitamin, Macrobi d. PHYSICAL EXAM: VITAL SIGNS: Blood pressure is 155/83, heart rate is 114 but has been 75 previously, respirations are 18, oxygenation 99% on room air. T-max is 37.1, T current is 36.7. GENERAL: Comf ortable female in no acute distress. HEENT: Sclerae anicteric. NECK: Supple. Oropharynx clear. Mucous membranes dry. There is a very small early labial lesion on the right upper lip consistent wi th perhaps an early HSV outbreak. NECK: Supple. No adenopathy. No thyromegaly. No carotid bruit. LUNGS: Clear to auscultation bilaterally. CARDIOVASCULAR: Tachycardia with a regular rate and rh ythm. No murmur, rub, or gallop. GI: Abdomen is soft, nontender, nondistended. No ascites. No or ganomegaly. No abdominal bruit. MUSCULOSKELETAL: No focal joint tenderness, swelling, or deformity . There is an incision over her right knee that is well healed. She is edematous without pitting. SKIN: Erythematous and consistent with rash over the extremities and trunk. NEUROLOGIC: Alert to p erson, place, and time. Cranial nerves normal. Motor nonfocal. DATABASE: White blood count is 5.4, hematocrit 33 with a platelet count of 252. Sodium 136, potassi um 3.7, chloride 109, bicarbonate 23, BUN 13, creatinine 0.7, glucose 89, AST 52, ALT 75, alkaline ph osphatase 140, total protein 4.6, total bilirubin 0.6, albumin 2.5. TSH 1.17. Hepatitis A IgM negat forest. Hepatitis B surface antigen negative. Hepatitis B core IgM negative. Hepatitis C antibody neg ative. Urine toxicology is negative. Urinalysis shows 25-50 white cells, 1+ leukocyte esterase, 4.0 urobilinogen with 1+ blood. CRP is elevated at 165. Imaging includes a CT scan of the abdomen and pelvis on October 07, 2018. This shows a 12 x 13 mm indeterminate lesion in the right hepatic lobe whic h partially fills in delayed sequences consistent with hemangioma, but does not have the classic estella pheral enhancement of this. There is a right uterine leiomyoma, bilateral renal cysts. Pelvic ultra sound on July 22, 2018, shows no change in a large intramural fundic fibroid measuring 5 x 4 x 5.2 cm. IMPRESSION: 1. Periumbilical and left lower abdominal discomfort, mild. 2. Abdominal distention. 3. Elevated liver function tests. 4. Elevated C-reactive protein. 5. Rash. 6. Recent enterovirus. RECOMMENDATIONS: 1. I suspect there is a more systemic problem for [place] that may simply be a viral syndrome with sor e throat, fever, rash and joint pain and mildly elevated liver tests. This can be seen with enterovi glenn. 2. We will send additional serologies for autoimmune hepatitis, which could also cause this initial picture. 3. She does have a family history of rheumatoid arthritis, and perhaps the systemic problems with fe lanie, rash, joint pain, and elevated CRP could represent the onset of inflammatory arthritis. It woul d be worth sending some serologies for inflammatory arthritis as well. 4. We will check [place] viral serologies, antinuclear antibody, anti-smooth muscle antibody, a nd a serum protein electrophoresis. 5. While it may be beneficial over this evaluation to perform an endoscopy and colonoscopy for evalu ation of her abdominal symptoms, I think we can hold off on these tests for now. 6. MRI of the liver to better evaluate the focal liver lesion. 7. Further recommendations to follow her imaging and serologic workup. /[id number]/MODL
[2018-10-11] MEDS ORDERED: FUROSEMIDE 20 MG TAB PO ONE (16:59)
--- NOTE | 2018-10-11 17:04 | HOSPPROG ---
Hospitalist Progress Note Assessment/Plan: 58 yo female with hx of uterine fibroids who was supposed to get a total hysterectomy on 10/10 but was cancelled for concern that that the pt was ill. She presented via the ER with abd pain and erythematous macular rash involving her neck down. She has had significant w/u recently including CT scans and ultrasounds. She has been treated recently with Macrobid for a UTI. She denies any urinary sx's She denies hx of acid reflux or symptoms. GI is consulting #Abdominal Pain, much improved today #Uterine Fibroids #Likely Macrobid induced rash -appears to be improving -Benadryl PRN #CT imaging c/w right sided hepatic mass measuring 12-13 mm possibly hemangioma -agrees to get MR tomorrow #Recent Human Enterovirus per Resp PCR -possibly contributing to her sx' #Mild transaminitis -overall improving, check again tomorrow -Negative Hep panel #Pedal Edema: -likely iatrogenic, lasix PO x 1 #Herpes Labialis, acute on chronic -Acyclovir 400mg TID #malaise: improving Plan: per above inflammatory markers, AI markers tomorrow MR Diet: Regular Code: Full VTE ppx: SCD Dispo: Inpatient Subjective: abd pain better. rash better. sores on lips Objective: Vital Signs Temp Pulse Resp BP Pulse Ox 37.2 C 76 16 111/76 95 10/11/18 15:24 10/11/18 15:24 10/11/18 15:24 10/11/18 15:24 10/11/18 15:24 Laboratory Results 10/11/18 04:58 10/11/18 04:58 10/10/18 10/11/18 10/12/18 05:59 05:59 05:59 Intake Total 1396 Output Total 500 400 Balance 896 -400 - Physical Exam Constitutional: no apparent distress, not in pain Eyes: PERRL, EOMI Ears, Nose, Mouth, Throat: moist mucous membranes, hearing normal Cardiovascular: regular rate and rhythym Respiratory: no respiratory distress Gastrointestinal: normoactive bowel sounds Skin: warm Neurologic: AAOx3 Psychiatric: interacting appropriately, not anxious, not encephalopathic Lymph, Heme, Immunologic: No petechiae ICD10 Worksheet Patient Problems: Problems Problem Status Onset Abdominal pain Acute Enterovirus infection Acute Rash Acute
[2018-10-11] MEDS: ACYCLOVIR 400 MG TAB PO SCH (22:06)
[2018-10-12] MEDS: KETOROLAC 30 MG/1 ML SDV IVP PRN (03:26)
[2018-10-12] MEDS: ACYCLOVIR 400 MG TAB PO SCH ×3 (08:31→20:32)
[2018-10-12] MEDS: LORazepam 0.5 MG TAB PO PRN (08:54)
[2018-10-12] MEDS ORDERED: LORazepam 2 MG/ML INJ IVP ONE (09:00)
[2018-10-12] MEDS ORDERED: GADOBUTROL 10 ML VIAL IVP ONE (10:25)
[2018-10-12] MEDS ORDERED: PEG 3350/NA SULF,BICARB,CL/KCL (GAVILYTE-G) 4000 ML BTL PO ONE ×2 (11:16→17:45)
[2018-10-12] MEDS ORDERED: DICYCLOMINE 10 MG CAP PO PRN (11:19)
--- NOTE | 2018-10-12 11:24 | SOAPPROG ---
SOAP Progress Note Assessment/Plan: Assessment/Plan: 1. Abnormal LFTs, in the setting of malaise, rash, joint pain, etc. Either a drug-sensitivity reaction to macrobid, or a nonspecific secondary effect of her positive respiratory enterovirus. Suspect will normalize in time. - recommend recheck in about three weeks - recommend making macrobid an allergy for her 2. Chronic digestive problems, including constipation, with two months of bilateral lower quadrant crampy abdominal pain, bloating. Some epigastric pain as well. With extensive negative evaluation, including CT scan, labs, etc., suspect irritable bowel syndrome only. Doubt an upper or colonic structural cause. However, she would like this investigated while here (due for next screening colonoscopy next year anyway). - prep >> EGD/Colon tomorrow. 10/12/18 11:19 Subjective: cc: Abnormal LFTs 2 months of lower crampy abdominal pain, with some epigastric component. Constipation, but well-controlled. Somewhat chronic digestive symptoms, with past history of "SIBO." Objective: Vital Signs Temp Pulse Resp BP Pulse Ox 35.6 C L 73 16 102/54 L 94 10/12/18 08:00 10/12/18 08:00 10/12/18 08:00 10/12/18 08:00 10/12/18 08:00 Laboratory Results 10/11/18 04:58 10/12/18 05:15 10/11/18 10/12/18 10/13/18 05:59 05:59 05:59 Intake Total 1396 Output Total 500 400 Balance 896 -400 Liver w/u pending. Physical Exam - Physical Exam General Appearance: WD/WN, alert, no apparent distress EENT: PERRL/EOMI, normal ENT inspection, pharynx normal, TMs normal Neck: non-tender, full range of motion, supple, normal inspection Respiratory: chest non-tender, lungs clear, normal breath sounds Cardiac/Chest: normal peripheral pulses, regular rate, rhythm Peripheral Pulses: 2+: carotid (R), carotid (L), femoral (R), femoral (L), dorsalis-pedis (R), dorsalis-pedis (L) Abdomen: normal bowel sounds, non-tender, soft Pelvic Exam: deferred Rectal: deferred Back: Normal inspection Skin: normal color, warm/dry Lymphatic: no adenopathy Extremities: normal range of motion, non-tender, normal inspection, normal capillary refill Neuro/Psych: no motor/sensory deficits, alert, normal mood/affect, oriented x 3 ICD10 Worksheet Patient Problems: Problems Problem Status Onset Abdominal pain Acute Enterovirus infection Acute Rash Acute
[2018-10-12] MEDS: CHOLECALCIFEROL VIT D3 1,000 UNITS TAB PO SCH (14:27)
[2018-10-12] MEDS: LISINOPRIL/HCTZ 10/12.5 MG 1 EA TAB PO SCH (14:27)
[2018-10-12] MEDS: SENNOSIDES/DOCUSATE SODIUM TAB PO SCH ×2 (14:29→20:24)
--- NOTE | 2018-10-12 15:40 | HOSPPROG ---
Hospitalist Progress Note Assessment/Plan: 58 yo female with hx of uterine fibroids who was supposed to get a total hysterectomy on 10/10 but was cancelled for concern that that the pt was ill. She presented via the ER with abd pain and erythematous macular rash involving her neck down. She has had significant w/u recently including CT scans and ultrasounds. She has been treated recently with Macrobid for a UTI. She denies any urinary sx's She denies hx of acid reflux or symptoms. GI is consulting #Abdominal Pain, much improved today #Likely IBS #Uterine Fibroids #Likely Macrobid induced rash vs secondary to enterovirus -appears to be improving -Benadryl PRN #CT imaging c/w right sided hepatic mass measuring 12-13 mm possibly hemangioma -MR Abdomen confirms hemangioma #Recent Human Enterovirus per Resp PCR -possibly contributing to her sx' #Mild transaminitis -overall improving, check again tomorrow -Negative Hep panel #Pedal Edema: -resolved with Lasix #Herpes Labialis, acute on chronic -Acyclovir 400mg TID #malaise: improving Plan: upper and lower endoscopy tomorrow Diet: clears Code: Full VTE ppx: SCD Dispo: Inpatient Subjective: feeling better. no cp or sob. Objective: Vital Signs Temp Pulse Resp BP Pulse Ox 36.9 C 73 16 115/71 94 10/12/18 12:00 10/12/18 12:00 10/12/18 12:00 10/12/18 14:27 10/12/18 12:00 Laboratory Results 10/11/18 04:58 10/12/18 05:15 10/11/18 10/12/18 10/13/18 05:59 05:59 05:59 Intake Total 1396 Output Total 500 400 Balance 896 -400 - Physical Exam Constitutional: no apparent distress Eyes: PERRL, EOMI Ears, Nose, Mouth, Throat: moist mucous membranes, hearing normal Cardiovascular: regular rate and rhythym Respiratory: no respiratory distress, no rales or rhonchi, clear to auscultation Gastrointestinal: normoactive bowel sounds Genitourinary: no bladder fullness Skin: warm Neurologic: AAOx3 Psychiatric: interacting appropriately, not anxious, not encephalopathic Lymph, Heme, Immunologic: No petechiae ICD10 Worksheet Patient Problems: Problems Problem Status Onset Rash Acute Enterovirus infection Acute Abdominal pain Acute
[2018-10-13] MEDS: ACETAMINOPHEN 325 MG TAB PO PRN (05:27)
[2018-10-13] MEDS ORDERED: D5W 1/2 NS W/ 20 KCl/L 1,000 ML IV SCH (07:00)
[2018-10-13] MEDS: LISINOPRIL/HCTZ 10/12.5 MG 1 EA TAB PO SCH (10:06)
[2018-10-13] MEDS: ACYCLOVIR 400 MG TAB PO SCH ×2 (10:06→15:19)
[2018-10-13] MEDS: CHOLECALCIFEROL VIT D3 1,000 UNITS TAB PO SCH (11:41)
[2018-10-13] MEDS: SENNOSIDES/DOCUSATE SODIUM TAB PO SCH (11:42)
--- NOTE | 2018-10-13 12:06 | ASMTCMCOM ---
CM Note CM Note Notes: CM discussed case with ANDREA Tavares. Patient pending colonoscopy and EGD. Plan continues to be discharge home independent. CM to follow. C Plan: Independent. Date Signed: 10/13/2018 12:06 PM Electronically Signed By:Rosanne Sheriff
[2018-10-13] MEDS ORDERED: MIDAZOLAM 2 MG/2 ML VIAL ONE ×2 (12:48→13:36)
[2018-10-13] MEDS ORDERED: FLUMAZENIL 0.5 MG/5 ML MDV IVP ONE (12:48)
[2018-10-13] MEDS ORDERED: NALOXONE HCL 0.4 MG/ML INJ ONE (12:48)
[2018-10-13] MEDS ORDERED: fentaNYL 100 MCG/2 ML INJ ONE (12:49)
[2018-10-13] MEDS ORDERED: PANTOPRAZOLE SODIUM 40 MG TAB PO SCH (14:00)
[2018-10-13] MEDS ORDERED: fentaNYL 100 MCG/2 ML INJ IVP ONE (14:00)
[2018-10-13] MEDS ORDERED: MIDAZOLAM 2 MG/2 ML VIAL IVP ONE (14:01)
--- NOTE | 2018-10-13 14:03 | GIREPORT ---
[facility] Surgical Services - Endoscopy Department Patient Name: Italia Blanton Procedure Date: 10/13/2018 12:54 PM Patient Type: Inpatient Attending MD/ ER Physician: Hiren Field MD Procedure: Upper GI endoscopy Indications: Epigastric abdominal pain Providers: Hiren Field MD, [facility] Referring MD: KISHORE Hartmann; [facility] Hospitalist service Medicines: Fentanyl 150 micrograms IV, Midazolam 8 mg IV Complications: No immediate complications. Description of Procedure: After obtaining informed consent, the endoscope was passed under direct vision. Throughout the procedure, the patient's blood pressure, pulse, and oxygen saturations were monitored continuously. The Endoscope was intro duced through the mouth, and advanced to the second part of duodenum. Findings: The esophagus was normal. Mild inflammation was found in the gastric antrum, in the form of nodul es, with some erythema. Biopsies were taken with a cold forceps for histolo gy, as well as for Helicobacter pylori testing. The examined duodenum was normal. Bx done. Estimated Blood Loss: none. Post Op Diagnosis: - Unremarkable exam. Some mild nodular gastritis, which might be causing some epigastric symptoms. Otherwise, suspect irritable bowel syndrome. Recommendation: - Await pathology results, of nodules, as well as H. pylori, celiac dis ease (the latter because of her elevated LFTs). - Generic PPI x 1 month, then can stop. - Thank you for allowing me to help in the management of this patient. Attending Participation: I personally performed the entire procedure. Rashida Maradiaga MD Hiren Field MD 10/13/2018 2:03:20 PM This report has been signed electronicallyPeter MD Rashida Number of Addenda: 0 Note Initiated On: 10/13/2018 12:54 PM [email or web address]
--- NOTE | 2018-10-13 14:10 | GIREPORT ---
[facility] Surgical Services - Endoscopy Department Patient Name: Italia Blanton Procedure Date: 10/13/2018 12:57 PM Patient Type: Inpatient Attending MD/ ER Physician: Hiren Field MD Procedure: Colonoscopy Indications: Bilateral lower abdominal pain. LFTs about the same. Liver blood work-u p pending. MRI with just a hemangioma. Else, please see EGD report. Providers: Hiren Field MD, FACG Referring MD: KISHORE Hartmann; [facility] Hospitalist service Medicines: See the other procedure note for documentation of the administered medications Complications: No immediate complications. Description of Procedure: After obtaining informed consent, the scope was passed under direct vis ion. Throughout the procedure, the patient's blood pressure, pulse, and oxyg en saturations were monitored continuously. The Colonoscope with irrigatio n channel was introduced through the anus and advanced to the terminal il eum. The terminal ileum was photographed. The quality of the bowel preparati on was good. Findings: The terminal ileum appeared normal. The entire examined colon appeared normal (except very small internal hemorrhoids). Estimated Blood Loss: none. Post Op Diagnosis: - Suspect irritable bowel syndrome only. Recommendation: - feed - buffcap IV - dicyclomine prn - repeat colonoscopy for general screening in 10 years I will sign off; I will f/u on outstanding liver w/u labs and bxs from her EGD. We will arrange repeat LFTs in about three weeks, to make sure the y normalize, as I suspect. F/u PCP. Else, please call if we can be of fur ther help [phone]). Thank you for allowing me to help in the management of this patient. Attending Participation: I personally performed the entire procedure. Rashida Maradiaga MD Hiren Field MD 10/13/2018 2:09:35 PM This report has been signed electronicallyPeter MD Rashida Number of Addenda: 0 Note Initiated On: 10/13/2018 12:57 PM [email or web address]
--- NOTE | 2018-10-13 14:40 | PDDCSUM ---
Discharge Summary Discharge Summary: 58 yo female with hx of uterine fibroids who was supposed to get a total hysterectomy on 10/10 but was cancelled for concern that that the pt was ill. She presented via the ER with abd pain and erythematous macular rash involving her neck down. She has had significant w/u recently including CT scans and ultrasounds. Please see below for details per problem list. Overall the pts abdominal pain and rash are significantly improved F/U: she will f/u with her PCP next week. She will need repeat LFT's. She will also f/u with [facility] for discussion re hysterectomy. Gastric biopsies were obtained today and these will need follow up: DDX: #Abdominal Pain, much improved today -etiology unclear but likely IBS -EGD shows gastritis and she has been started on a PPI daily x 1 month. -Colonoscopy was c/w internal hemorrhoids but otherwise normal -AI labs were obtained and are pending #Likely IBS #Gastritis #Uterine Fibroids #Likely Macrobid induced rash vs secondary to enterovirus -improved significantly -Macrobid has been placed on her allergy list -Benadryl PRN #CT imaging c/w right sided hepatic mass measuring 12-13 mm possibly hemangioma -MR Abdomen confirms hemangioma #Recent Human Enterovirus per Resp PCR -possibly contributing to her sx' #Mild transaminitis -overall stable -Negative Hep panel #Pedal Edema: -resolved with Lasix #Herpes Labialis, acute on chronic -Acyclovir 400mg TID #malaise: improving Exam: NAD AAOX3 RRR CTA B S/NT/ND MEDS: SEE MED REC TOTAL TIME SPENT ON D/C IS 35 MINS
[2018-10-13 14:48] VITALS: BP 139/81
== END 2018-10-13 17:27 | disposition home or self-care (01) ==
LOC: F3E 12:15
PROVIDERS: ADMIT Family Medicine; ATTEND Family Medicine
PROC: 0DB98ZX Excision of Duodenum, Via Natural or Artificial Opening Endoscopic, Diagnostic (ICD-10-PCS; principal; 2018-10-13 13:00)
PROC: 0DB68ZX Excision of Stomach, Via Natural or Artificial Opening Endoscopic, Diagnostic (ICD-10-PCS; principal; 2018-10-13 13:00)
PROC: 0WJP8ZZ Inspection of Gastrointestinal Tract, Via Natural or Artificial Opening Endoscopic Approach (ICD-10-PCS; principal; 2018-10-13 13:00)
DX: R21 Rash and other nonspecific skin eruption (principal); D25.9 Leiomyoma of uterus, unspecified; K29.70 Gastritis, unspecified, without bleeding; R74.0 Nonspecific elevation of levels of transaminase and lactic acid dehydrogenase [LDH]; R60.0 Localized edema; B00.1 Herpesviral vesicular dermatitis; I10 Essential (primary) hypertension; R10.32 Left lower quadrant pain; R10.33 Periumbilical pain; K64.8 Other hemorrhoids; E86.9 Volume depletion, unspecified; K59.09 Other constipation; Z87.440 Personal history of urinary (tract) infections; Z82.61 Family history of arthritis
CPT/HCPCS: 43239; 45378; 71046; 74183; 96361; 96374; 96375; 96376; 99285; G0378; 80305; 86255-90; 86664-90; 86665-90; A9585; G0472; J1885; J2060; J2250; J2310; J2405; J3010